=== PATIENT | male | born 1965 | race Two or more races ===

== ENCOUNTER 2022-08-02 17:47 | Emergency (ER) | payer OTHER ==
[~2022-08-02] VITALS: Ht 170.2 cm; Wt 70.8 kg
[~2022-08-02 17:47] MED LIST: TRAMADOL HCL50 MG PO
[2022-08-02] MEDS ORDERED: GLUMETZA1000 MG PO (17:58)
[2022-08-02] MEDS ORDERED: COZAAR100 MG PO (17:58)
== END 2022-08-02 21:24 | disposition home or self-care (01) ==
LOC: ER 17:47
DX: S82.64XA Nondisplaced fracture of lateral malleolus of right fibula, initial encounter for closed fracture (principal); X58.XXXA Exposure to other specified factors, initial encounter; Y93.9 Activity, unspecified; Y92.9 Unspecified place or not applicable